=== PATIENT | male | born 1945 | race Two or more races ===

== ENCOUNTER 2016-12-13 10:04 | Emergency (ER) | payer MEDICARE, MEDICAID ==
[~2016-12-13] VITALS: Ht 175.3 cm; Wt 81.6 kg
[~2016-12-13 10:04] MED LIST: AMITIZA24 MCG ORAL; ATORVASTATIN CA20 MG ORAL; CEVIMELINE HCL30 MG PO; COMPAZINE10 MG ORAL; DALIRESP500 MCG PO; DEXILANT60 MG ORAL; DICYCLOMINE HCL10 MG PO; FOLIC ACID1 MG ORAL; HYDROCHLOROTHIA25 MG ORAL; IMODIUM2 MG ORAL; LEVOTHYROXINE125 MCG ORAL; LIALDA1.2 GM ORAL; LISINOPRIL20 MG ORAL; LOMOTIL TABLET1 EACH ORAL; LYRICA50 MG ORAL; MELOXICAM15 MG PO; MONTELUKAST SOD10 MG ORAL; NORCO 10/3251 EA ORAL; PHENYTEK300 MG PO; PILOCARPINE HCL5 M1 PO; POTASSIUM 25 M25 ME1 PO; SYMBICORT 16010.2 G1 IH; ZOFRAN4 MG ORAL
[2016-12-13] MEDS ORDERED: Morphine Sulfate 4mg/ml Inj IM ONE (11:30)
[2016-12-13] MEDS ORDERED: Albuterol ud Inhalation HHN ONE (11:30)
[2016-12-13] MEDS ORDERED: Ipratropium 0.02% Inh Soln 2.5ml UD HHN ONE (11:30)
[2016-12-13 12:19] VITALS: BP 171/89
--- NOTE | 2016-12-14 07:37 | Emergency Room Report ---
History of Present Illness General Chief Complaint: Multiple Trauma/Fall Source: Patient, Medical Record Present Illness HPI 71-year-old male presents ED complaining of right hip pain. States that yesterday he had a mechanical fall at home. Went to [facility] yesterday and had CT of hip done which showed no acute fracture but DJD. Patient states that his home medications are not helping. Patient called Dr. Pickens who advised patient to come to ER for further evaluation. PMD is Dr. Mark. Patient states pain is throbbing, 8/10, nonradiating. No other aggravating or relieving factors. Patient states he has difficulty walking. 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 Patient is also complaining of some wheezing. Notes history of asthma. Denies shortness of breath or cough. Denies fevers or chills. Denies chest pain. No other aggravating relieving factors. Denies any other associated symptoms Allergies: Coded Allergies: No Known Allergies (Unverified , 02/29/16) Patient History Past Medical History: HTN, asthma, COPD, seizures Past Surgical History: none Pertinent Family History: none Social History: Denies: alcohol use, drug use, smoking Immunizations: UTD Reviewed Nursing Documentation: PMH: Agreed, PSxH: Agreed Nursing Documentation-PMH Past Medical History: No History, Except For Hx Cardiac Problems: Yes Hx Hypertension: Yes Hx Asthma: Yes Hx COPD: Yes - regular use oxygen Hx Cancer: Yes Hx Gastrointestinal Problems: Yes - probable anal CA Hx Neurological Problems: Yes Hx Seizures: Yes - 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 Review of Systems All Other Systems: negative except mentioned in HPI Physical Exam Vital Signs Date Time Temp Pulse Resp B/P Pulse Ox O2 Delivery O2 Flow Rate FiO2 12/13/16 10:10 98.2 70 22 186/56 92 Room Air 12/13/16 12:19 2.0 12/13/16 12:25 36 Sp02 EP Interpretation: reviewed, normal General Appearance: no apparent distress, alert, GCS 15, non-toxic Head: normocephalic Eyes: bilateral eye PERRL, bilateral eye normal inspection ENT: normal ENT inspection Neck: normal inspection Respiratory: wheezing Cardiovascular #1: regular rate, rhythm, no edema Gastrointestinal: normal bowel sounds, non tender, soft, non-distended, no guarding, no rebound Rectal: deferred Genitourinary: no CVA tenderness Musculoskeletal: tender - R hip. no shortening. no rotation Neurologic: alert, oriented x3, responsive, motor strength/tone normal, sensory intact, speech normal Psychiatric: normal inspection Skin: normal inspection Lymphatic: normal inspection Medical Decision Making Diagnostic Impression: Primary Impression: Hip arthritis Additional Impression: COPD (chronic obstructive pulmonary disease) Qualified Codes: J44.9 - Chronic obstructive pulmonary disease, unspecified ER Course Hospital Course 71-year-old male presents ED complaining of right hip pain status post fall yesterday. Notes wheezing Differential diagnoses include: URI, bronchitis, asthma/COPD, pneumonia, fracture, dislocation Clinical course Patient placed on stretcher. After initial history and physical I ordered pain medications and nebulizer treatment We obtained records from [facility]; patient had CT of hip which showed DJD but no acute fracture I discussed findings with Dr. Pickens; he agrees no acute intervention is required and patient does have followup appointment with him next week. Patient agrees with plan. Dr Mark aware of plan. Upon reassessment wheezing has resolved Diagnosis - hip arthritis, COPD Stable and discharged home. Instructed to followup with PMD/ortho. Return to ED if symptoms recur or worsen Last Vital Signs Date Time Temp Pulse Resp B/P Pulse Ox O2 Delivery O2 Flow Rate FiO2 12/13/16 13:16 98.2 12/13/16 12:25 36 12/13/16 12:25 78 16 100 Nasal Cannula 4.0 12/13/16 12:19 171/89 Status: improved Disposition: HOME, SELF-CARE Condition: Stable Referrals: DINO PICKENS Patient Instructions: Arthritis, [id number] Additional Instructions: patient is requesting an intrarticular hip injection MOLLY GRACIA M.D. Dec 14, 2016 07:37
== END 2016-12-13 12:17 | disposition home or self-care (01) ==
LOC: EMR 10:30
DX: M16.11 Unilateral primary osteoarthritis, right hip (principal); J44.9 Chronic obstructive pulmonary disease, unspecified; J45.909 Unspecified asthma, uncomplicated; I10 Essential (primary) hypertension; Z85.9 Personal history of malignant neoplasm, unspecified
CPT/HCPCS: 94640; 94664; 96372; 99283; J2270